=== PATIENT | female | born 1935 | race Caucasian/White ===

== ENCOUNTER 2018-08-16 09:36 | Outpatient (CLI) | payer MEDICARE ==
[2018-08-16 14:33] LABS: Bilirubin Negative (Negative); Blood, Urine Negative (Negative); Clarity CLEAR (Clear); Glucose, Urine (Dipstick) Negative (Negative); Leukocyte Negative (Negative); Nitrite Negative (Negative); Protein, Urine (Dipstick) Negative (Neg-Trace); Specific Gravity, Urine 1.008 (1.002-1.036); Urobilinogen 0.2 mg/dL (0.2-1.0); pH, Urine 6.5 (5.0-9.0)
[2018-08-16 14:41] LABS: Bacteria/HPF None Seen HPF (None Seen); Hyaline Casts/LPF 0-3 HYALINE CAST LPF (0-3 Hyaline); RBC/HPF 0-3 HPF (0-3); Squamous Epithelial None Seen HPF (0-3); WBC/HPF None Seen HPF (0-3)
--- NOTE | 2018-08-16 15:55 | EKG ---
Test Reason : Blood Pressure : / mmHG Vent. Rate : 053 BPM Atrial Rate : 053 BPM P-R Int : 148 ms QRS Dur : 082 ms QT Int : 438 ms P-R-T Axes : 017 072 067 degrees QTc Int : 410 ms Sinus bradycardia with sinus arrhythmia Otherwise normal ECG Confirmed by KESHA APPLE ([id number]) on 08/16/2018 3:55:33 PM Referred By: IERO Confirmed By:KESHA APPLE
== END 2018-08-16 09:37 | disposition home or self-care (01) ==
LOC: LABBT 09:36
PROVIDERS: ATTEND Orthopaedic Surgery
DX: Z01.818 Encounter for other preprocedural examination (principal); M17.11 Unilateral primary osteoarthritis, right knee
CPT/HCPCS: 81001; 87081; 93005; 93010

== ENCOUNTER 2018-08-21 09:32 | Outpatient (CLI) | payer MEDICARE ==
[2018-08-21 10:11] LABS: #Eosinphils 0.2 thou/uL (0.0-0.7); #Lymphocytes 1.9 thou/uL (1.20-3.40); #Monocytes 0.7 thou/uL (0.11-0.59); #Neutrophils 3.7 thou/uL (1.40-6.50); %Basophils 0.2 % (0.0-1.0); %Eosinophils 3.2 % (0.0-10.0); %Lymphocytes 29.1 % (21.0-51.0); %Monocytes 11.4 % (0.0-10.0); %Neutrophils 56.1 % (42.0-75.0); Hemoglobin 14.6 g/dL (12.0-16.0); Mean Corpuscular HGB CONC 32.7 g/dL (32.0-36.0); Mean Corpuscular Hemoglobin 30.7 pg (27.0-31.0); Mean Corpuscular Volume 93.8 fL (78.0-98.0); Mean Platelet Volume 8.1 fL (7.4-10.4); Platelet Count 187 thou/uL (130-400); RBC Distribution Width 11.4 % (11.5-14.5); Red Blood Cell (RBC) Count 4.74 mill/uL (4.20-5.40); White Blood Cell (WBC) Count 6.5 thou/uL (4.8-10.8)
== END 2018-08-21 09:33 | disposition home or self-care (01) ==
LOC: LABBT 09:32
PROVIDERS: ATTEND Orthopaedic Surgery
DX: Z01.812 Encounter for preprocedural laboratory examination (principal); M17.11 Unilateral primary osteoarthritis, right knee
CPT/HCPCS: 80048; 85025; 85610; 85730; 86850; 86900; 86901

== ENCOUNTER 2018-08-27 06:43 | Inpatient (IN) | payer MEDICARE ==
[2018-08-16 12:33] VITALS: BMI 22.4
[2018-08-21 10:22] LABS: INR-International Normal Ratio 1.3; PTT 41.2 SEC (22.9-36.1); Prothrombin Time 15.8 SEC (12.0-14.7)
[2018-08-21 10:32] LABS: Anion Gap 12 mmol/L (10-20); BUN (Urea Nitrogen) 17 mg/dL (9.8-20.1); Calc. Creatinine Clearance 0 mL/min (70-130); Calcium 9.7 mg/dL (7.8-10.44); Carbon Dioxide 26 mmol/L (23-31); Chloride 106 mmol/L (98-107); Estimated GFR-MDRD 73; Glucose 95 mg/dL (83-110); Potassium 4.8 mmol/L (3.5-5.1); Sodium 139 mmol/L (136-145)
[2018-08-27] MEDS ORDERED: Sodium Chloride 0.9% 100 ML ONE (07:14)
[2018-08-27] MEDS ORDERED: Tranexamic Acid 1,000 MG/10 ML VIAL ONE (07:14)
[2018-08-27] MEDS ORDERED: Fentanyl 100 MCG/2 ML VIAL ONE ×3 (08:14→11:49)
[2018-08-27] MEDS ORDERED: Midazolam HCl 2 mg/2 ml Vial ONE (08:14)
[2018-08-27] MEDS ORDERED: traMADol HCl 50 MG TAB PO PRN ×2 (08:56)
[2018-08-27] MEDS ORDERED: Promethazine HCl 25 MG/ML VIAL IM PRN ×3 (08:56→11:22)
[2018-08-27] MEDS ORDERED: Ropivacaine HCl/PF 250 ML in Premix Bag 1 BAG NERVE BLCK SCH (08:56)
[2018-08-27] MEDS ORDERED: Ondansetron PF 4 MG/2 ML Vial IVP PRN ×2 (08:56→09:34)
[2018-08-27] MEDS ORDERED: Zolpidem Tartrate 5 MG TAB PO PRN ×2 (08:56→09:34)
[2018-08-27] MEDS ORDERED: HYDROcodone/Acetaminophen 7.5/325 mg Tablet PO PRN ×2 (08:56→08:57)
[2018-08-27] MEDS ORDERED: Fentanyl 100 MCG/2 ML VIAL SLOW IVP PRN (08:58)
[2018-08-27] MEDS ORDERED: Bupivacaine PF 0.5% 30 ML VIAL ONE (09:18)
[2018-08-27] MEDS ORDERED: diphenhydrAMINE 25 MG CAP PO PRN (09:34)
[2018-08-27] MEDS ORDERED: HYDROcodone/Acetaminophen 10/325 mg Tablet PO PRN (09:34)
[2018-08-27] MEDS ORDERED: Acetaminophen 325 MG TAB PO PRN (09:34)
[2018-08-27] MEDS ORDERED: Tranexamic Acid 1,000 MG/10 ML VIAL IVP SCH (09:45)
[2018-08-27] MEDS ORDERED: Tranexamic Acid 1,000 MG in Sodium Chloride 0.9% 100 ML IVPB SCH (09:45)
[2018-08-27] MEDS ORDERED: PROPOFOL 200 MG/20 ML VIAL ONE (10:18)
[2018-08-27] MEDS ORDERED: Ondansetron PF 4 MG/2 ML Vial ONE (10:18)
[2018-08-27] MEDS ORDERED: Ropivacaine 0.2% HCl/PF (40 MG/20 ML VIAL) ONE (10:38)
[2018-08-27] MEDS ORDERED: Ropivacaine 0.5% HCl/PF (150 MG/30 ML VIAL) ONE (10:38)
[2018-08-27] MEDS ORDERED: Ondansetron HCl/PF 4 MG/2 ML Vial IVP PRN (11:22)
[2018-08-27] MEDS ORDERED: Promethazine HCl 25 MG/ML VIAL SLOW IVP PRN (11:22)
--- NOTE | 2018-08-27 12:46 | OP ---
DATE OF PROCEDURE: 08/27/2018 PREOPERATIVE DIAGNOSIS: Right knee osteoarthrosis. POSTOPERATIVE DIAGNOSIS: Right knee osteoarthrosis. PROCEDURE PERFORMED: Right total knee replacement using Fast Orientation pinless navigation. MANDOLIN REPAIRER: Martinez Aldridge PA-C. BLOOD LOSS: Minimal. COMPLICATIONS: None. ANESTHESIA: She had general anesthetic as well as preoperative block. IMPLANTS: To the right knee is a triathlon total knee system. The femur was size 3 cruciate retaining. We used a size 2 primary tibial base plate. We used a 2 x 9 mm CS X3 plastic and a symmetric 27 x 8 X3 patella. DISPOSITION: She did go to recovery room in stable condition. INDICATIONS: This is an 82-year-old active female, has failed nonoperative treatment for her arthritis and at this time, wished to have her knee replaced. PROCEDURE IN DETAIL: After all appropriate consent forms were explained and signed, the patient was taken back to the operating room and at this time was given general anesthetic. Once the level of anesthesia was appropriate, a well-padded tourniquet was placed on the right leg, and the leg was then prepped and draped in standard surgical fashion. The limb was exsanguinated and tourniquet taken up to 300 mmHg. Midline incision was made with a 10 blade down through the skin and subcutaneous tissue. Bovie electrocautery was used to coagulate any brisk venous bleeding. A new blade was used to make a medial parapatellar arthrotomy. Small subperiosteal release was performed medially and excess fat pad was removed. The knee was flexed up to gain access to the femur. The femur was navigated and distal femoral resection was made. Epicondylar access was used to align our sizing jig and this was pinned in place. We sized our femur to be a 3 cruciate retaining. 4:1 cutting block was applied and pinned. Anterior and posterior chamfer cuts were then made. We navigated out our proximal tibia and made our proximal tibial resection. Spreaders were used to remove any posterior osteophytes off the back of the femur as well as remaining meniscal tissue. A long alignment adi was then used to achieve correct rotation of our tibial baseplate and a size 2 primary tibial base plate was chosen. This was pinned in place. We trialed the polyethylene and a 2 x 9 mm CS X3 plastic polyethylene gave us full extension and good stability throughout range of motion. Two towel clips and a saw were used to cut our patella. Three lug nuts were drilled and symmetric 27 x 8 X3 patella was trialed which sat nicely in the trochlear groove. We then drilled our femur and punched our tibia. All components were removed. The knee was thoroughly irrigated and dried. Cement was mixed into the cement gun on the back table. Components were then placed. The knee was held out in full extension until the cement had dried. All excess bone cement was removed. Multiple #2 Vicryl stitches as well as a Quill were used to close our extensor mechanism. 0 Quill followed by a running Monoderm was then used to close the skin. Surgicel glue was then used on the skin. Once this had dried, soft tissue dressing was applied to the limb, tourniquet was let down, and the toes pinked up nicely. The patient was then awakened and taken to the recovery room in stable condition. All counts were correct at the end of the case. The patient did receive preoperative IV antibiotics. The patient was injected with Exparel for postoperative pain relief. Job ID: [id number]
[2018-08-27] MEDS: Ketorolac Tromethamine 30 MG/ML VIAL IVP SCH ×3 (15:12→23:34)
[2018-08-27] MEDS: Sodium Chloride 0.9% 1,000 ML IV SCH ×2 (15:12→20:05)
[2018-08-27] MEDS: HYDROcodone/Acetaminophen 10/325 mg Tablet PO PRN ×2 (15:19→23:34)
[2018-08-27] MEDS: CEFAZOLIN 2 GM in Premix Bag 1 BAG IVPB SCH ×2 (15:20→23:33)
[2018-08-27] MEDS ORDERED: Vancomycin HCl 1 GM in Premix Bag 1 BAG IVPB SCH (19:00)
[2018-08-27] MEDS: Aspirin 81 mg Enteric Coated Tablet PO SCH (20:07)
[2018-08-27] MEDS: Dronedarone HCl 400 MG TAB PO SCH (20:07)
[2018-08-27] MEDS: Rosuvastatin 20 MG TAB PO SCH (20:07)
[2018-08-28] MEDS: Ketorolac Tromethamine 30 MG/ML VIAL IVP SCH ×3 (05:33→18:16)
[2018-08-28 06:09] LABS: Hemoglobin 12.1 g/dL (12.0-16.0); Mean Corpuscular HGB CONC 32.4 g/dL (32.0-36.0); Mean Corpuscular Hemoglobin 30.8 pg (27.0-31.0); Mean Corpuscular Volume 95.1 fL (78.0-98.0); Mean Platelet Volume 8.2 fL (7.4-10.4); Platelet Count 156 thou/uL (130-400); RBC Distribution Width 11.6 % (11.5-14.5); Red Blood Cell (RBC) Count 3.94 mill/uL (4.20-5.40); White Blood Cell (WBC) Count 7.7 thou/uL (4.8-10.8)
[2018-08-28] MEDS: Sodium Chloride 0.9% 1,000 ML IV SCH ×2 (06:36→17:11)
[2018-08-28] MEDS: Dronedarone HCl 400 MG TAB PO SCH ×2 (08:06→20:58)
[2018-08-28] MEDS: Senokot S 8.6-50 MG TAB PO SCH ×2 (08:07→20:58)
[2018-08-28] MEDS: Aspirin 81 mg Enteric Coated Tablet PO SCH ×2 (08:07→20:58)
[2018-08-28] MEDS: Ferrous Gluconate 324 MG TAB PO SCH ×2 (08:07→20:58)
[2018-08-28] MEDS: Multivitamin W/ Minerals 1 TAB PO SCH (08:08)
[2018-08-28] MEDS: HYDROcodone/Acetaminophen 10/325 mg Tablet PO PRN (08:40)
[2018-08-28] MEDS ORDERED: Dextrose 5% in Water 1,000 ML IV PRN (09:48)
[2018-08-28] MEDS ORDERED: HumaLOG 300 UNITS/3 ML VIAL SC PRN ×2 (09:48)
[2018-08-28] MEDS ORDERED: Dextrose 50% Abboject 50 ML SYRINGE SLOW IVP PRN (09:48)
--- NOTE | 2018-08-28 10:07 | PRG ---
DATE OF SERVICE: 08/28/2018 SUBJECTIVE: Wayne is an 82-year-old white female, who is postop day 1 from right total knee arthroplasty. She is doing well. Pain is controlled. She ambulated 10 feet yesterday evening. OBJECTIVE: VITAL SIGNS: Temperature 98.9, pulse 82, respiratory rate 16 and nonlabored, and blood pressure is 113/52. GENERAL: She is alert and oriented to person, place, time and situation, grossly nonfocal. EXTREMITIES: Incision is clean and closed. There is no strikethrough. She is neurovascularly intact in the involved extremity. LABORATORY DATA: Hemoglobin and hematocrit are 12.1 and 37.4 respectively. IMPRESSION: This is an 82-year-old female, postop day 1 right total knee arthroplasty, doing well. PLAN: Continue current management. Probable discharge home tomorrow. Job ID: [id number]
--- NOTE | 2018-08-28 11:30 | CON ---
DATE OF CONSULTATION: PRIMARY CARE PHYSICIAN: Deborah Charlton MD. REASON FOR CONSULTATION: For aid in medical management. REASON FOR ADMISSION: Right total knee replacement. HISTORY OF PRESENT ILLNESS: Ms. Martin is a very pleasant 82-year-old female, who has a history of diabetes mellitus and chronic atrial fibrillation. She failed outpatient and conservative treatment for severe osteoarthritis of the right knee. As a result, she requested surgical intervention with a right total knee replacement and she is being admitted for this. She also has a history of atrial fibrillation, which she says she has been in sinus rhythm ever since Dr. Batres placed her on Multaq. She is on Xarelto for chronic anticoagulation. Prior to surgery, she has not had any complaints and currently her only complaint is some pain in her right knee, which she says is pretty moderate. She denies having any chest pain or shortness of breath. She denies any palpitations. She did notice a little bit of dizziness when she got up after surgery yesterday, but currently she is feeling okay. She denies any nausea, no vomiting, no abdominal pain and no leg pain or leg swelling. REVIEW OF SYSTEMS: All systems were reviewed and are negative except for that mentioned in the history of present illness. 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 PAST SURGICAL HISTORY: She has had numerous squamous cell carcinoma removal. She has had a right rotator cuff repair, left orbital fracture repair and cataract surgery on both eyes. ALLERGIES: NO KNOWN DRUG ALLERGIES. SOCIAL HISTORY: She is . She currently lives alone. She is a former smoker. She occasionally drinks and she would like to be a full code. FAMILY HISTORY: Significant for father who had heart disease. Mother had a stroke in her 80s and then at 85. A brother who had a heart attack and lung cancer in another brother. CURRENT MEDICATIONS: Include: 1. Crestor 20 mg at bedtime. 2. Metoprolol 50 mg daily. 3. Multaq 400 mg twice daily. 4. Eliquis 5 mg twice daily. PHYSICAL EXAMINATION: GENERAL: She is alert and oriented. She appears to be in no acute distress. She is well developed and well nourished. VITAL SIGNS: Blood pressure was 113/52, heart rate 82, respiratory rate of 16, temperature is 98.9. HEENT: Her pupils are equal, round, and reactive. Extraocular muscles are intact. Sclerae anicteric. Throat, no erythema. NECK: No adenopathy, no bruits. LUNGS: Clear to auscultation. There is no wheezing, no rales, no rhonchi. CARDIOVASCULAR: She had a normal S1, S2. I did not appreciate an S3 or S4. No murmurs, clicks or rubs. ABDOMEN: Soft. It is nontender, nondistended. Positive for bowel sounds. There is no rebound or guarding. EXTREMITIES: There is no edema. No calf tenderness. The right leg is dressed. NEUROLOGIC: She is grossly intact. SKIN AND INTEGUMENT: No skin changes. No rash. LABORATORY DATA: CBC: White blood cell count 7.7, hemoglobin 12.1, hematocrit is 37.4, platelet count is 152. Chemistry panel on 08/21 was normal. She also had a nuclear stress test done on July 23, 2018, which was normal showing no reversible ischemia with a normal EF. ASSESSMENT: This is a pleasant 82-year-old female, who is admitted for an elective right total knee replacement. She also has a history of atrial fibrillation and diabetes mellitus, both of which appear to be well controlled. 1. For chronic atrial fibrillation, she is clinically in sinus rhythm and her heart rate is stable. We will continue Multaq. Eliquis can be restarted at the discretion of the surgeon. 2. Diabetes mellitus. This appears to be diet controlled. We will place her on a sliding scale insulin. Continue PT and OT as per Orthopedic surgery as well as deep venous thrombosis prophylaxis. We will defer to the Orthopedics and we will be happy to follow along with you. Job ID: [id number]
[2018-08-28] MEDS: Rosuvastatin 20 MG TAB PO SCH (20:58)
[2018-08-29] MEDS: Ketorolac Tromethamine 30 MG/ML VIAL IVP SCH ×2 (01:22→06:19)
[2018-08-29] MEDS: Sodium Chloride 0.9% 1,000 ML IV SCH ×2 (02:50→08:58)
[2018-08-29 05:57] LABS: Hemoglobin 11.7 g/dL (12.0-16.0); Mean Corpuscular HGB CONC 31.9 g/dL (32.0-36.0); Mean Corpuscular Hemoglobin 30.6 pg (27.0-31.0); Mean Corpuscular Volume 95.7 fL (78.0-98.0); Platelet Count 150 thou/uL (130-400); RBC Distribution Width 11.5 % (11.5-14.5); Red Blood Cell (RBC) Count 3.82 mill/uL (4.20-5.40); White Blood Cell (WBC) Count 8.9 thou/uL (4.8-10.8)
[2018-08-29] MEDS: Aspirin 81 mg Enteric Coated Tablet PO SCH (08:58)
[2018-08-29] MEDS: Multivitamin W/ Minerals 1 TAB PO SCH (08:58)
[2018-08-29] MEDS: Senokot S 8.6-50 MG TAB PO SCH (08:58)
[2018-08-29] MEDS: Ferrous Gluconate 324 MG TAB PO SCH (08:58)
[2018-08-29] MEDS: Dronedarone HCl 400 MG TAB PO SCH (08:58)
[2018-08-29] MEDS: HYDROcodone/Acetaminophen 10/325 mg Tablet PO PRN (09:23)
[2018-08-29 14:20] VITALS: BP 112/65; TEMP 98.4
== END 2018-08-29 14:15 | disposition home or self-care (01) | DRG 470 ==
LOC: SDC 06:43 → SJJU 09:34
PROVIDERS: ADMIT Orthopaedic Surgery; ATTEND Orthopaedic Surgery
PROC: 0SRC0J9 Replacement of Right Knee Joint with Synthetic Substitute, Cemented, Open Approach (ICD-10-PCS; principal; 2018-08-27)
DX: M17.11 Unilateral primary osteoarthritis, right knee (principal); E11.9 Type 2 diabetes mellitus without complications; I48.2 Chronic atrial fibrillation; Z85.828 Personal history of other malignant neoplasm of skin; Z98.41 Cataract extraction status, right eye; Z98.42 Cataract extraction status, left eye; Z87.891 Personal history of nicotine dependence; Z79.02 Long term (current) use of antithrombotics/antiplatelets
CPT/HCPCS: 36415; 36416; 80048; 85027; 85610; 85730; 86850; 86900; 86901; C1713; C1776; J1885; J2250; J2405; J2704; J2795; J3010; J3370; J7050; S0020

== ENCOUNTER 2019-06-21 20:53 | Observation (INO) | payer MEDICARE ==
[2019-06-21] MEDS ORDERED: Cyclobenzaprine 10 MG TAB PO PRN (23:16)
[2019-06-21] MEDS ORDERED: Ondansetron PF 4 MG/2 ML Vial IVP PRN (23:16)
[2019-06-21] MEDS ORDERED: Ondansetron ODT 4 MG TAB PO PRN (23:16)
[2019-06-21] MEDS ORDERED: Dextrose 50% Abboject 50 ML SYRINGE SLOW IVP PRN (23:16)
[2019-06-21] MEDS ORDERED: Dextrose 5% in Water 1,000 ML IV PRN (23:16)
[2019-06-21] MEDS ORDERED: traMADol HCl 50 MG TAB PO PRN (23:16)
[2019-06-21] MEDS: Acetaminophen 325 MG TAB PO SCH (23:50)
[2019-06-21] MEDS ORDERED: Acetaminophen 500 MG TAB PO SCH (23:59)
[2019-06-21] MEDS ORDERED: Scopolamine 1.5 mg/72 hour Patch TD SCH (23:59)
[2019-06-22 00:07] VITALS: BMI 21.2
[2019-06-22] MEDS ORDERED: Gabapentin 300 MG CAP PO SCH ×2 (00:15→21:00)
[2019-06-22] MEDS ORDERED: Dronedarone HCl 400 MG TAB PO SCH (00:15)
--- NOTE | 2019-06-22 01:50 | HP ---
REQUESTING PHYSICIAN: Dr. Vang. ATTENDING SURGEON: Dr. Schmidt. CONSULTATIONS: Neurosurgery, Dr. Contreras. HISTORY OF PRESENT ILLNESS: The patient is an 83-year-old woman, who yesterday was moving groceries from a shopping cart when she turned and caught her foot on one of the wheels and fell. She said she did not hit her head, but did land on the ground hitting her knee. She was able to finish her task, went home, put ice on her knee, started having some neck pain and put ice on her neck. This morning, she woke up. She felt that she was having some balance issues and some increased neck pain, so she was taken to the emergency department in [place], where she underwent evaluation and examination, was noted to have a possible C1 fracture, at which time, they transferred to our facility for neurosurgical intervention and admission. The patient arrived in a C-collar. She states that her pain is currently controlled. She denied any loss of consciousness or syncopal like symptoms. ALLERGIES: NONE. CURRENT MEDICATIONS: 1. Gabapentin. 2. Multaq. 3. Rosuvastatin. 4. Metoprolol. 5. Eliquis. PAST MEDICAL HISTORY: Atrial fibrillation, hypertension, hyperlipidemia, arthritis. PAST SURGICAL HISTORY: Right knee replacement, appendectomy, hysterectomy, cataract surgery. SOCIAL HISTORY: The patient lives at home. She denies drugs. She drinks "socially" and quit smoking many years ago. PHYSICAL EXAMINATION: VITAL SIGNS: Blood pressure 148/68, heart rate 71, respirations 16, oxygen saturation is 96% on room air, and temperature is 98.2. GENERAL: The patient is resting comfortably in bed. She is awake, alert, and oriented x3. Dorene Coma Scale is 15. HEENT. Head is normocephalic, atraumatic. Eyes, extraocular motion intact. PERRLA bilaterally. Ears are atraumatic without discharge. Nose is atraumatic without discharge. Oropharynx is clear. NECK: Immobilized in an [place] collar. It was not removed for my exam. The patient does report pain in the bilateral paraspinous areas and minimal midline tenderness. Her trachea is midline. There is no JVD. CHEST: Clear to auscultation with good inspiratory and expiratory effort. HEART: Irregularly irregular consistent with her atrial fibrillation. LUNGS: Clear to auscultation bilaterally. ABDOMEN: Soft, flat, nontender with active bowel sounds. PELVIS: Stable. EXTREMITIES: Neurovascularly intact x4. Right knee has a small contusion noted anteriorly. BACK: Atraumatic and nontender. LABORATORY DATA: There are no labs at this time. RADIOGRAPHS: CT of the brain without contrast from [place] shows no acute intracranial findings. CT of the C-spine without contrast shows a questionable lucency in the ring of C1. ASSESSMENT: 1. Status post ground level fall greater than 24 hours ago. 2. Possible C1 fracture. 3. Right knee contusion. 4. History of hypertension. 5. History of atrial fibrillation. PLAN: Plan will be to admit the patient to the surgical floor for observation with evaluation by Neurosurgery in the morning. We will keep her in an [place] collar. We will allow her to eat tonight. We will resume all of her home medications with the exception of her Eliquis until it is confirmed that she will not have surgery. She will have pulmonary toilet, gastritis, mechanical VTE prophylaxis. Neurosurgical team has been notified. The evaluation, examination, laboratory, and radiographic findings will be discussed with Dr. Schmidt after this dictation. Job ID: [id number]
[2019-06-22] MEDS: Acetaminophen 325 MG TAB PO SCH ×2 (05:56→12:12)
[2019-06-22] MEDS: Ibuprofen 200 MG TAB PO SCH ×2 (05:56→15:26)
[2019-06-22 05:57] LABS: #Eosinphils 0.2 thou/uL (0.0-0.7); #Lymphocytes 1.6 thou/uL (1.20-3.40); #Monocytes 0.7 thou/uL (0.11-0.59); #Neutrophils 3.4 thou/uL (1.40-6.50); %Basophils 0.5 % (0.0-1.0); %Eosinophils 4.3 % (0.0-10.0); %Lymphocytes 26.7 % (21.0-51.0); %Monocytes 11.4 % (0.0-10.0); %Neutrophils 57.2 % (42.0-75.0); Hemoglobin 13.7 g/dL (12.0-16.0); Mean Corpuscular HGB CONC 32.5 g/dL (32.0-36.0); Mean Corpuscular Hemoglobin 30.3 pg (27.0-31.0); Mean Corpuscular Volume 93.1 fL (78.0-98.0); Mean Platelet Volume 7.9 fL (7.4-10.4); Platelet Count 178 thou/uL (130-400); RBC Distribution Width 11.6 % (11.5-14.5); Red Blood Cell (RBC) Count 4.51 mill/uL (4.20-5.40); White Blood Cell (WBC) Count 5.9 thou/uL (4.8-10.8)
[2019-06-22 06:18] LABS: Anion Gap 10 mmol/L (10-20); BUN (Urea Nitrogen) 12 mg/dL (9.8-20.1); Calc. Creatinine Clearance 54 mL/min (70-130); Calcium 8.7 mg/dL (7.8-10.44); Carbon Dioxide 27 mmol/L (23-31); Chloride 107 mmol/L (98-107); Estimated GFR-MDRD 80; Glucose 94 mg/dL (83-110); Phosphorus 3.4 mg/dL (2.3-4.7); Potassium 3.9 mmol/L (3.5-5.1); Sodium 140 mmol/L (136-145)
--- NOTE | 2019-06-22 08:51 | CON ---
DATE OF CONSULTATION: HISTORY OF PRESENT ILLNESS: The patient is an 83-year-old female, who presented to the [facility] ER for neck pain and instability. The patient reports that yesterday she was moving groceries from a shopping cart when she caught her foot on the cart causing her to fall to the ground. Over the next day, she had some increased neck pain in the posterior region and some dizziness only when bending forward. She was brought to the emergency department at [facility], where she was evaluated with a noncontrast CT of the head and cervical spine, which was notable for a subtle left posterior C1 ring fracture, which was nondisplaced. CT head was negative for acute changes, but is notable for multiple small meningiomas. I visited the patient at the bedside on [place]-3. She is awake, alert, in no acute distress. She is currently wearing an [place] collar, which is fitting appropriately. She has no complaints and her neurologic exam is nonfocal. PAST MEDICAL HISTORY: Atrial fibrillation, hypertension, hyperlipidemia, and arthritis. PAST SURGICAL HISTORY: Right knee surgery, appendectomy, hysterectomy, and cataracts surgeries. ALLERGIES: SHE HAS NO KNOWN DRUG ALLERGIES. CURRENT MEDICATIONS: 1. Gabapentin. 2. Multaq. 3. Rosuvastatin. 4. Metoprolol. 5. Eliquis. SOCIAL HISTORY: She lives at home by herself. She does not smoke, drink, or use any drugs. PHYSICAL EXAMINATION: VITAL SIGNS: Temperature is 98.8, pulse is 74, respiratory rate is 20, she is 96% on room air, and her blood pressure is 111/68. GENERAL: She appears comfortable, in no acute distress. HEENT: Head; normocephalic and atraumatic. Eyes; PERRLA. Extraocular movements intact. ENT; oral mucosa is pink, intact, and moist. She has normal voice. NECK: She is currently immobilized in an [place] collar. I did not attempt to palpate the spine considering her underlying injury. CARDIAC: Regular rate and rhythm. PULMONARY: Symmetric chest expansion. No evidence of dyspnea. MUSCULOSKELETAL: Free active range of motion of all extremities. No focal motor weakness. No obvious deformity. She has a small abrasion and contusion on the right knee. NEURO: A and O x4. No focal neurologic deficits. ASSESSMENT AND PLAN: This is an 83-year-old female, status post mechanical fall with a nondisplaced left C1 posterior ring fracture. She is currently immobilized in an [place] collar, which she should wear at all times. We will provide her with a [place] collar for showering purposes. She also has a noncontrast CT, which shows multiple hyperdensities, which has been compared by Radiology to prior scans and they feel are consistent with meningiomas. I agree that this is not represent acute intracranial hemorrhage or other acute event. The patient can begin to mobilize and she can resume all her home medications. We will plan to arrange 4-week followup with repeat x-rays in the outpatient setting. Please reach out to Neurosurgery for additional questions or concerns. Job ID: [id number]
[2019-06-22 16:10] VITALS: BP 93/61; TEMP 98.2
[2019-06-22] MEDS ORDERED: Rosuvastatin 20 MG TAB PO SCH (21:00)
== END 2019-06-22 16:00 | disposition home or self-care (01) ==
LOC: ERS 20:53 → INTOOBSV 23:15 → SURG B 23:15
PROVIDERS: ADMIT Specialist; ATTEND Specialist
DX: S12.031A Nondisplaced posterior arch fracture of first cervical vertebra, initial encounter for closed fracture (principal); I48.91 Unspecified atrial fibrillation; I10 Essential (primary) hypertension; E78.5 Hyperlipidemia, unspecified; M19.90 Unspecified osteoarthritis, unspecified site; Z79.01 Long term (current) use of anticoagulants; Z79.899 Other long term (current) drug therapy; Z87.891 Personal history of nicotine dependence; W01.0XXA Fall on same level from slipping, tripping and stumbling without subsequent striking against object, initial encounter; Y92.512 Supermarket, store or market as the place of occurrence of the external cause
CPT/HCPCS: 80048; 83735; 84100; 85025; 97139; 99284; G0378 ×2; 36415

== ENCOUNTER 2019-08-01 10:59 | Outpatient (CLI) | payer MEDICARE ==
--- NOTE | 2019-08-01 11:37 | RAD ---
Cervical spine 4 views: 08/01/2019 COMPARISON: CT of the cervical spine performed 06/21/2019 HISTORY: Fracture of the C1 ring noted on prior CT examination. FINDINGS: Prior CT examination performed 06/21/2019 demonstrates a nondisplaced posterior lateral left -sided C1 ring fracture. The nature/location of this fracture would make this fracture difficult to visualize on radiographs. The fracture line is probably noted along the posterior aspect of the C1 ri ng on the lateral examination with no evidence for displacement. There is mild anterolisthesis at the C3-4 level measuring 2-3 mm. There is disc space narrowing with degenerative endplate change and mild anterior osteophyte formatio n at C4-5, C5-6, and C6-7. Mild posterior osteophyte at C5-6 and C6-7. The frontal imaging demonstrates significant multilevel mid cervical spine facet and uncovertebral osteophyte formation, most prominent at the C4-5, C5-6, and C6-7 levels. 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 A probable nondisplaced fracture line seen involving the posterior ring of C1 on the lateral view.
== END 2019-08-01 11:00 | disposition home or self-care (01) ==
LOC: TBSIIMAG 10:59
PROVIDERS: ATTEND Neurological Surgery
DX: S12.001D Unspecified nondisplaced fracture of first cervical vertebra, subsequent encounter for fracture with routine healing (principal); M47.812 Spondylosis without myelopathy or radiculopathy, cervical region
CPT/HCPCS: 72040